=== PATIENT | female | born 1990 | race African-American/Black ===

== ENCOUNTER 2023-01-22 19:02 | Emergency (ER) | payer SELFPAY ==
[2023-01-22 19:10] VITALS: BP 125/90; RESP 18; TEMP 98.1; BMI 21.5
[2023-01-22] MEDS ORDERED: ACETAMINOPHEN 500 MG TABLET (FP) PO ONE (21:11)
[2023-01-22] MEDS ORDERED: LIDOCAINE 2.5%/PRILOCAINE 2.5% (5 Gram/TUBE) TP ONE (21:32)
[2023-01-22] MEDS ORDERED: LIDOCAINE 2.5%/PRILOCAINE 2.5% 30 GRAM TUBE TP ONE (21:32)
[2023-01-22] MEDS ORDERED: LIDOCAINE HCL 2% (50ML VIAL) SQ ONE (21:53)
[2023-01-22] MEDS ORDERED: LIDOCAINE HCL 2% (20ML MULTI-DOSE VIAL) ONE (21:59)
[2023-01-22] MEDS ORDERED: ACETAMINOPHEN 325 MG TABLET (FP) ONE (22:08)
[2023-01-22] MEDS ORDERED: SULFAMETHOXAZOLE/TRIMETHOPRIM 800MG/160MG D.S. TABLET PO ONE (22:40)
[2023-01-22 23:49] VITALS: PULSE 90
== END 2023-01-22 23:52 | disposition home or self-care (01) ==
LOC: JER 19:02
PROC: 0H99XZZ Drainage of Perineum Skin, External Approach (ICD-10-PCS; principal; 2023-01-22)
DX: K61.0 Anal abscess (principal); R10.2 Pelvic and perineal pain
CPT/HCPCS: 99284-25